=== PATIENT | female | born 1950 | race African-American/Black ===

== ENCOUNTER 2018-07-07 15:02 | Day surgery (SDC) | payer MEDICARE, MEDICAID ==
[2018-07-07] MEDS ORDERED: Sodium Chloride 0.9% 20 ML ONE (15:08)
[2018-07-07] MEDS ORDERED: Sodium Chloride 0.9% 1,000 ML IV SCH (15:15)
[2018-07-07 15:39] VITALS: BP 120/83
[2018-07-07] MEDS ORDERED: Pembrolizumab 200 MG in Sodium Chloride 0.9% 250 ML 250 ML IV SCH (16:00)
== END 2018-07-07 16:54 | disposition home or self-care (01) ==
LOC: ONC/OP 15:02
PROVIDERS: ATTEND Internal Medicine Hematology & Oncology
DX: Z51.11 Encounter for antineoplastic chemotherapy (principal); C34.90 Malignant neoplasm of unspecified part of unspecified bronchus or lung; C78.00 Secondary malignant neoplasm of unspecified lung; C78.7 Secondary malignant neoplasm of liver and intrahepatic bile duct; E11.9 Type 2 diabetes mellitus without complications; I10 Essential (primary) hypertension; E78.5 Hyperlipidemia, unspecified; Z86.73 Personal history of transient ischemic attack (TIA), and cerebral infarction without residual deficits; Z86.718 Personal history of other venous thrombosis and embolism; Z79.899 Other long term (current) drug therapy; Z88.8 Allergy status to other drugs, medicaments and biological substances
CPT/HCPCS: 80053; 82248; 83615; 84100; 84443; 84550; 96361; 96413; J1642; J7050; J9271

== ENCOUNTER 2018-07-19 18:23 | Inpatient (IN) | payer MEDICARE, MEDICAID ==
--- NOTE | 2018-07-19 20:13 | CT ---
CT BRAIN NONCONTRAST: HISTORY: A 68-year-old female, status post acute head trauma. The patient is on anticoagulation therapy. FINDINGS: There is no midline shift or any other mass effect. There is no evidence of acute intracranial hemor rhage, large cortical infarct, obstructive hydrocephalus, or extraaxial fluid collection. The calvar ium is intact. There is diffuse parenchymal volume loss. There are low attenuation areas in the whi te matter. These are nonspecific, but in a patient of this age, they are probably chronic ischemic w cara matter changes due to microvascular atherosclerosis. There are multiple ossifications of the an terior interhemispheric falx. IMPRESSION: 1) No acute intracranial findings. 2) Involutional changes and severe chronic ischemic white matter changes. nat [] POS: MANDY
--- NOTE | 2018-07-19 20:19 | CT ---
CT CERVICAL SPINE NONCONTRAST: DATE: 07/19/2018 TIME: 7:39 p.m. HISTORY: A 68-year-old female status post acute cervical trauma from fall. COMPARISON: None. FINDINGS: There are no jumped or perched facets. There is no evidence of acute fracture. The vertebral body h eights are maintained. There is no prevertebral soft tissue swelling. There are multiple noncalcified, biapical pulmonary nodules of varying sizes, incompletely imaged. T he ones at the right apex are larger than those of the left. The largest one at the right apex is up to 17 mm. The thyroid gland is diffusely enlarged, with heterogeneous attenuation. The left lobe i s the largest by a large nodule, but all the nodules are difficult to separate from each other. The right lobe has ill-defined regions of moderately low attenuation. There is coarse calcification at t he left thyroid mass. The left thyroid mass is approximately 4.5 x 4 x 6.5 cm. It displaces the trac hea to the right. There are multiple bridging osteophytes protruding anteriorly and to the preverteb ral space throughout all levels, from C2-C3 to C6-C7. Some of them are bulky and large. These encro ach upon the hypopharynx and could cause dysphagia. There is loss of lordosis. There is no acute fr acture or subluxation. IMPRESSION: 1. No evidence of acute fracture or acute traumatic subluxation. 2. Multiple biapical pulmonary nodules, incompletely imaged. Pulmonary metastatic disease is a poss ibility. 3. Diffuse thyromegaly. Possibilities include multinodular goiter and thyroid cancer. nat [] POS: MANDY
[2018-07-19 21:46] LABS: #Basophils 0.1 thou/uL (0.0-0.2); #Eosinphils 0.1 thou/uL (0.0-0.7); #Lymphocytes 3.1 thou/uL (1.20-3.40); #Monocytes 0.8 thou/uL (0.11-0.59); #Neutrophils 5.9 thou/uL (1.40-6.50); %Basophils 0.7 % (0.0-1.0); %Eosinophils 0.6 % (0.0-10.0); %Lymphocytes 31.1 % (21.0-51.0); %Monocytes 8.4 % (0.0-10.0); %Neutrophils 59.2 % (42.0-75.0); Mean Corpuscular HGB CONC 31.9 g/dL (32.0-36.0); Mean Corpuscular Hemoglobin 27.7 pg (27.0-31.0); Mean Corpuscular Volume 86.8 fL (78.0-98.0); Mean Platelet Volume 6.3 fL (7.4-10.4); Platelet Count 324 thou/uL (130-400); Red Blood Cell (RBC) Count 4.35 mill/uL (4.20-5.40); White Blood Cell (WBC) Count 9.9 thou/uL (4.8-10.8)
[2018-07-19 22:25] LABS: ALT (SGPT) 16 U/L (8-55); AST (SGOT) 75 U/L (5-34); Albumin 4.5 g/dL (3.4-4.8); Alkaline Phosphatase 116 U/L (40-150); Anion Gap 21 mmol/L (10-20); BUN (Urea Nitrogen) 14 mg/dL (9.8-20.1); Bilirubin, Total 0.6 mg/dL (0.2-1.2); CK (CPK) 41 U/L (29-168); Calc. Creatinine Clearance 0 mL/min (70-130); Carbon Dioxide 18 mmol/L (23-31); Chloride 101 mmol/L (98-107); Estimated GFR-MDRD 87; Globulin 4.6 g/dL (2.4-3.5); Glucose 90 mg/dL (80-115); Potassium 4.4 mmol/L (3.5-5.1); Protein, Total 9.1 g/dL (6.0-8.3); Sodium 136 mmol/L (136-145)
--- NOTE | 2018-07-19 22:57 | PDOC.FPRHP ---
- History of Present Illness Chief Complaint: fall History of Present Illness: This is a 68yo F with pmh of stage 4 Liver cancer with mets to lungs and pelvic lymph nodes (dx 12/2016, last chemo 07/2018) presenting with complaint of fall. Pt reports losing her balance earlier in the evening and hitting her head and lower back. Denies dizzyness/vertigo, denies LOC. Reports she simply lost her balance. Of note her daughter reports that in the weeks since her most recent chemo tx pt has had significantly decreased po intake. Today she reports to have only drank a half cup of water. Regarding Cancer: pt was diagnosed in december 2016 as listed above. Her oncologist Dr. Perdomo has been consulted and plans to see her in the AM. She reports that at the time of original Dx she was hospitalized in [place] for hypercalcemia and has had elevated levels since then though not as high as found in ED today (14, 13.6 when corrected for albumin) ED Course: 1 L NS, Tylenol, Oncology consulted from ED - Allergies/Adverse Reactions Allergies Allergy/AdvReac Type Severity Reaction Status Date / Time aspirin Allergy Unverified 07/07/18 15:12 lisinopril Allergy Verified 07/07/18 15:54 - Home Medications Medication Instructions Recorded Confirmed Type Amlodipine [Norvasc] 10 mg PO DAILY 07/20/18 07/20/18 History Apixaban [Eliquis] 5 mg PO BID 07/20/18 07/20/18 History Atorvastatin Calcium 10 mg PO DAILY 07/20/18 07/20/18 History Spironolactone 50 mg PO DAILY 07/20/18 07/20/18 History - History PMHx: Stage 4 liver cancer, CVA with residual L sided weakness, HLD, DM2, Hx of DVT PSHx: surgery on goiter, R ankle FHx:DM, CAD Social: denies tobacco/etoh/drugs - Review of Systems General: reports: fatigue. denies: fever/chills Eyes: denies: eye pain, vision changes ENT: denies: nasal congestion Respiratory: denies: cough, congestion, shortness of breath Cardiovascular: denies: chest pain, palpitation Gastrointestinal: denies: nausea, vomiting Skin: denies: rashes, lesions Musculoskeletal: reports: pain (lower back). denies: tenderness Neurological: denies: numbness, syncope, seizure Psychological: denies: anxiety, depression - Vital signs BP: [119/90] HR: [90] RR: [16] Tmax: [98] Pox: [95]% on [ra] Wt: [58] - Physical Exam Constitutional: NAD, awake, alert and oriented HEENT: PERRLA, EOMI, grossly normal vision, grossly normal hearing, MMM Neck: supple, trachea midline Chest: no-tender to palpation Heart: RRR, normal S1/S2 Lungs: CTAB, no respiratory distress Abdomen: soft, bowel sounds present Musculoskeletal: normal structure, normal tone Neurological: CN II-XII intact, normal sensation, other (Strength 5/5 diffusely except 4/5 on flexion/extention of LUE and LLE) Skin: good turgor, capillary refill <2 seconds Heme/Lymphatic: no unusual bruising or bleeding, no purpura Psychiatric: normal mood and affect, good judgment and insight, intact recent and remote memory FMR H&P: Results - Labs Result Diagrams: 07/19/18 21:35 07/19/18 21:35 Lab results: WBC 9.9 thou/uL (4.8-10.8) 07/19/18 21:35 Hgb 12.0 g/dL (12.0-16.0) 07/19/18 21:35 Hct 37.7 % (36.0-47.0) 07/19/18 21:35 MCV 86.8 fL (78.0-98.0) 07/19/18 21:35 Plt Count 324 thou/uL (130-400) 07/19/18 21:35 Neutrophils % 59.2 % (42.0-75.0) 07/19/18 21:35 Sodium 136 mmol/L (136-145) 07/19/18 21:35 Potassium 4.4 mmol/L (3.5-5.1) 07/19/18 21:35 Chloride 101 mmol/L (98-107) 07/19/18 21:35 Carbon Dioxide 18 mmol/L (23-31) L 07/19/18 21:35 BUN 14 mg/dL (9.8-20.1) 07/19/18 21:35 Creatinine 0.80 mg/dL (0.6-1.1) 07/19/18 21:35 Glucose 90 mg/dL (80-115) 07/19/18 21:35 Calcium 14.0 mg/dL (7.8-10.44) H* 07/19/18 21:35 Total Bilirubin 0.6 mg/dL (0.2-1.2) 07/19/18 21:35 AST 75 U/L (5-34) H 07/19/18 21:35 ALT 16 U/L (8-55) 07/19/18 21:35 Alkaline Phosphatase 116 U/L (40-150) 07/19/18 21:35 Creatine Kinase 41 U/L (29-168) 07/19/18 21:35 Serum Total Protein 9.1 g/dL (6.0-8.3) H 07/19/18 21:35 Albumin 4.5 g/dL (3.4-4.8) 07/19/18 21:35 FMR H&P: A/P - Problem List (1) Hypercalcemia Current Visit: Yes Status: Acute Code(s): E83.52 - HYPERCALCEMIA (2) Fall Current Visit: Yes Status: Acute Code(s): W19.XXXA - UNSPECIFIED FALL, INITIAL ENCOUNTER (3) Cancer, liver, primary Current Visit: Yes Status: Acute Code(s): C22.8 - MALIGNANT NEOPLASM OF LIVER, PRIMARY, UNSPECIFIED TO TYPE (4) HTN (hypertension) Current Visit: Yes Status: Acute Code(s): I10 - ESSENTIAL (PRIMARY) HYPERTENSION (5) HLD (hyperlipidemia) Current Visit: Yes Status: Acute Code(s): E78.5 - HYPERLIPIDEMIA, UNSPECIFIED (6) History of DVT (deep vein thrombosis) Current Visit: Yes Status: Acute Code(s): Z86.718 - PERSONAL HISTORY OF OTHER VENOUS THROMBOSIS AND EMBOLISM - Plan Moderate Hypercalcemia 2/2 hypovolemia vs. malignancy vs. primary hyperparathyroidism A- CT head/neck negative for acute process but did show diffuse thyromegaly. On routine work up, pt found to have a calcium of 14, corrected to 13.6. Pt has had a chronically elevated calcium but has never been this high at this facility. 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 - PTH to rule out primary hyperparathyroidism. - Trend with AM labs w/ Ca and vitamin D - Oncology consulted from ER, f/u on much appreciated recommendations Fall likely 2/2 hypovolemia A- CT c spine and head show no acute/malicious processes, pt complains of increased lumbar pain but shows no red flag symptoms P- Continue with IVF - Lumbar XR - orthostatics - fall precautions - ambulate with assist Stage IV liver CA -Per oncology. Hx of DVT -home eliquis Hx of CVA -pt lists ASA allergy HLD -home atorvastatin HTN -home spironolactone and amlodipine DM2 -pt lists in pmh but not on any med. BG low on presentation -ACHS accuchecks, mild ssi DNAR code PPx: Eliquis for VTE disposition: Admit to telemetry observation FMR H&P: Upper Level - Pertinent history 68 yo AAF with history of stage IV liver CA on chemotherapy since October presenting with weakness and a witnessed fall earlier today at home. Pt was using walker when she felt weak and fell backwards. She hit her lower back and head but denies LOC. Daughter states unsteady gait recently. Pt endorses poor PO intake since starting therapy but otherwise denies fevers/chills, SKINNER, CP, palpitations, SOB, abdominal pain, NVD, constipation. Pt's last chemotherapy was 07/07/2018. Oncologist is Dr. Perdomo. - Pertinent findings VSS Gen: pleasant in NAD CV: RRR Resp: unlabored, CTAB Abd: BS+, NTTP - Plan Date/Time: 07/19/18 4118 I, Toi Sawyer MD PGY3, have evaluated this patient and agree with findings/ plan as outlined by planner internship resident. Pertinent changes/additions are listed here. 1. Moderate Hypercalcemia likely 2/2 malignancy -Pt presents with witnessed ground level fall due to worsening weakness. CT head /neck negative for acute process but did show diffuse thyromegaly. On routine work up, pt found to have a calcium of 14, corrected to 13.6. -Pt has had a chronically elevated calcium but has never been this high. -Will admit to telemetry for fluid resuscitation with normal saline. Consider Calcitonin administration as well to increase urinary excretion. Pt may also benefit from bisphosphonate half-way. -Although hypercalcemia likely related to known malignancy, will obtain PTH to rule out primary hyperparathyroidism. -Trend with AM labs. -Oncology consulted from ER, recommendations greatly appreciated. 2. Stage IV liver CA -Per oncology. -Resume home medications. DNAR code PPx: Eliquis for VTE, no GI indicated. disposition: Admit to telemetry observation for anticipated length of stay less than two midnights, pending clinical course. Addendum - Attending - Attending Attestation Date/Time: 07/20/18 0801 I personally evaluated the patient and discussed the management with Dr. Smith and Silverio. I agree with and repeated the History, Examination, Assessment and Plan documented above with any addition or exceptions noted below. Neuro exam intact. C/o back pain post fall. Will order imaging and follow.
[2018-07-20] MEDS ORDERED: Acetaminophen 500 MG TAB ONE (00:32)
--- NOTE | 2018-07-20 06:48 | PDOC.FM ---
- Subjective Subjective: No events overnight. Patient resting, but in mild distress due to back/right sided pain. Patient states she fell on her back yesterday and this could be the cause. Patient otherwise denies SOB, chest pain, abdominal pain, NVD. - Objective MAR Reviewed: Yes Result Diagrams: 07/19/18 21:35 07/20/18 08:14 Phys Exam - Physical Examination Constitutional: NAD HEENT: PERRLA, moist MMs, sclera anicteric Neck: supple Respiratory: clear to auscultation bilateral Cardiovascular: RRR Gastrointestinal: soft, non-tender, no distention, positive bowel sounds Musculoskeletal: no edema TTP on right flank area; no bruising noted Neurological: moves all 4 limbs Psychiatric: normal affect, A&O x 3 Skin: no rash Dx/Plan (1) Cancer, liver, primary Code(s): C22.8 - MALIGNANT NEOPLASM OF LIVER, PRIMARY, UNSPECIFIED TO TYPE Status: Acute (2) Fall Code(s): W19.XXXA - UNSPECIFIED FALL, INITIAL ENCOUNTER Status: Acute (3) HLD (hyperlipidemia) Code(s): E78.5 - HYPERLIPIDEMIA, UNSPECIFIED Status: Acute (4) HTN (hypertension) Code(s): I10 - ESSENTIAL (PRIMARY) HYPERTENSION Status: Acute (5) History of DVT (deep vein thrombosis) Code(s): Z86.718 - PERSONAL HISTORY OF OTHER VENOUS THROMBOSIS AND EMBOLISM Status: Acute (6) Hypercalcemia Code(s): E83.52 - HYPERCALCEMIA Status: Acute - Plan Plan: Moderate Hypercalcemia 2/2 hypovolemia vs. malignancy vs. primary hyperparathyroidism - CT head/neck negative for acute process but did show diffuse thyromegaly. On routine work up, pt found to have a calcium of 14, corrected to 13.6. Pt has had a chronically elevated calcium but has never been this high at this facility. EKG normal with normal qtc - NS @ 150ml/hr for correction of Ca; will consider bisphosphonate therapy for mcc - PTH to rule out primary hyperparathyroidism pending - Trend with AM labs w/ Ca and vitamin D - pending - Oncology consulted from ER, f/u on much appreciated recommendations; palliative care consulted Fall likely 2/2 hypovolemia - CT c spine and head show no acute/malicious processes, pt complains of increased lumbar pain but shows no red flag symptoms - Continue with IVF - Lumbar XR pending - orthostatics pending - fall precautions; ambulate with assist Stage IV liver CA - Per oncology, appreciate recs - Palliative care consulted - Alex for pain Hx of DVT - home eliquis Hx of CVA - aware, pt lists ASA allergy HLD - home atorvastatin HTN - home spironolactone and amlodipine DM2 - pt lists in pmh but not on any med. BG low on presentation - ACHS accuchecks, mild SSI DNAR code PPx: Eliquis for VTE Dispo: Admit to telemetry obs Addendum - Attending - Attending Attestation Date/Time: 07/20/18 8603 I personally evaluated the patient and discussed the management with Dr. Jaramillo I agree with the History, Examination, Assessment and Plan documented above with any addition or exceptions noted below.Malignancy associated hypercalcemia responding to fluids and Zoledronic acid appreciate oncology recommendations. Patient complain right hip pain s/p trauma continue in observation.
[2018-07-20] MEDS ORDERED: Lactated Ringer's 1,000 ML IV SCH (07:00)
[2018-07-20] MEDS ORDERED: HYDROcodone/Acetaminophen 7.5/325 mg Tablet PO PRN (08:10)
[2018-07-20] MEDS ORDERED: Zoledronic Acid 4 MG in Sodium Chloride 0.9% 100 ML IVPB SCH (08:30)
[2018-07-20 08:53] LABS: Anion Gap 13 mmol/L (10-20); BUN (Urea Nitrogen) 13 mg/dL (9.8-20.1); Calc. Creatinine Clearance 0 mL/min (70-130); Carbon Dioxide 22 mmol/L (23-31); Chloride 105 mmol/L (98-107); Estimated GFR-MDRD Greater than 90; Glucose 91 mg/dL (80-115); Potassium 4.2 mmol/L (3.5-5.1); Sodium 136 mmol/L (136-145)
[2018-07-20 09:02] LABS: Calcium 12.9 mg/dL (7.8-10.44)
[2018-07-20] MEDS: Sodium Chloride 0.9% 1,000 ML IV SCH ×3 (09:14→22:31)
--- NOTE | 2018-07-20 09:35 | RAD ---
LUMBAR SPINE THREE VIEW SERIES: Indication: Back pain, fall. FINDINGS: There is a grade I spondylolisthesis at L4-5. No compression fracture. Moderate multilevel degenerati ve change of the lumbar spine is present. Pelvic osseous structures are not reliably visualized and a re incompletely seen on the base of this exam. IMPRESSION: No acute compression fracture of the lumbar spine. Grade I spondylolisthesis at L4-5. POS: TPC
[2018-07-20 10:16] LABS: Magnesium 1.7 mg/dL (1.6-2.6); Phosphorus 2.2 mg/dL (2.3-4.7)
[2018-07-20] MEDS ORDERED: Dextrose 5% in Water 1,000 ML IV PRN (14:22)
[2018-07-20] MEDS ORDERED: Acetaminophen 325 MG TAB PO PRN (14:22)
[2018-07-20] MEDS ORDERED: Dextrose 50% Abboject 50 ML SYRINGE SLOW IVP PRN (14:22)
[2018-07-20] MEDS ORDERED: HumaLOG 300 UNITS/3 ML VIAL SC PRN (14:22)
[2018-07-20] MEDS ORDERED: Amlodipine 10 MG TAB PO SCH (15:00)
[2018-07-20] MEDS ORDERED: Apixaban 5 MG TAB PO SCH (15:00)
[2018-07-20] MEDS ORDERED: Spironolactone 25 MG TAB PO SCH (15:00)
[2018-07-20] MEDS ORDERED: Atorvastatin Calcium 10 MG TAB PO SCH (15:00)
[2018-07-20] MEDS: Apixaban 5 MG TAB PO SCH (22:24)
--- NOTE | 2018-07-21 04:00 | CON ---
DATE OF CONSULTATION: REASON FOR CONSULT: Hypercalcemia. HISTORY OF PRESENT ILLNESS: Ms. Ladd is a 68-year-old female with metastatic carcinoma of unknown primary, likely lung origin, who underwent 6 cycles of chemotherapy consisting of carboplatin and Taxol. She is currently on immunotherapy with Keytruda. She presented to the emergency room this morning after a fall. Her calcium was noted to be elevated at 14. She was mildly dehydrated and started on IV fluids for hypercalcemia. She had a brain and cervical spine CT and x-ray, all of which showed no acute findings. She has a history of malignant hypercalcemia. Her calcium on July 07 in the clinic was 11.8. She complains of back pain at this time. She has a history of UTI and was started on Cipro in July for symptoms. PAST MEDICAL HISTORY: 1. 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 2. Diabetes mellitus 2. 3. Hypertension. 4. Hyperlipidemia. 5. History of CVA. 6. History of right lower extremity DVT. PAST SURGICAL HISTORY: 1. Ankle surgery. 2. Thyroid surgery, goiter. ALLERGIES: ASPIRIN AND LISINOPRIL. HOME MEDICATIONS: 1. Amlodipine 2.5 mg b.i.d. 2. Atorvastatin 10 mg daily. 3. Eliquis 5 mg b.i.d. 4. Spironolactone 25 mg daily. FAMILY HISTORY: No history of cancer. SOCIAL HISTORY: Single, lives with her daughter. No alcohol, tobacco, or illicit drug use. REVIEW OF SYSTEMS: CONSTITUTIONAL: No fever, chills, or night sweats. Positive for poor appetite and weakness. EYES: No blurred or double vision. ENT: No pain, hoarseness, sore throat, or dysphagia. CV: No chest pain, palpitations, or syncope. RESPIRATORY: No shortness of breath, dyspnea on exertion, or orthopnea. GI: No nausea, vomiting, diarrhea, constipation, or abdominal pain. : No dysuria or hematuria. MUSCULOSKELETAL: Positive for back pain. SKIN: No rash or pruritus. HEMATOLOGICAL: No bleeding, bruising, or clotting. NEUROLOGICAL: Positive for weakness or syncope. No headaches or seizure activity. PSYCH: No anxiety or depression. PHYSICAL EXAMINATION: VITAL SIGNS: Per ER record, the patient is afebrile. GENERAL: A frail female, in no acute distress. HEENT: Normocephalic, atraumatic. Pupils equal and reactive to light. NECK: Supple. CV: Regular rate and rhythm. LUNGS: Clear. ABDOMEN: Soft, nontender. Bowel sounds are positive. EXTREMITIES: No clubbing, cyanosis, or edema. SKIN: No rash. HEMATOLOGICAL: No petechiae or purpura. NEUROLOGICAL: Nonfocal. PSYCH: The patient is alert, oriented, and appropriate. LABORATORY DATA: Current WBCs 9.9, hemoglobin 12, hematocrit 37.7, platelet count 324,000, 59% neutrophils, 31% lymphocytes. Sodium 136, potassium 4.2, chloride 105, CO2 is 22, BUN is 13, creatinine 0.75, calcium is 12.9, phosphorus 2.2, magnesium 1.7. Total bilirubin is 0.6, AST 75, ALT 16, alkaline phosphatase 116. Creatine kinase 41. Troponin is less than 0.010. Serum total protein 9.1, albumin 4.5, globulin 4.6. PTH is 4.4. RADIOLOGY: Per HPI. ASSESSMENT: 1. Metastatic hepatoid carcinoma. 2. Malignant hypercalcemia. 3. Dehydration, likely syncopal episode. DISCUSSION: The patient has been started on IV fluids with mild improvement in her calcium. She will receive a dose of zoledronic acid. We will recheck her calcium in the morning. Her next treatment is due on July 28. We will follow up with her in the outpatient setting. Thank you for the consult. Job ID: [id number]
--- NOTE | 2018-07-21 06:17 | PDOC.FM ---
- Subjective Subjective: No events overnight. Patient does complain of abdominal pain this morning. States no BM in over 3 days. She states her right sided back pain has improved. No other issues or complaints. She states overall she feels better. Per daughter , she states her mother is at her baseline mentation. She states that the patient has been having some dementia and has good and bad days. - Objective MAR Reviewed: Yes Vital Signs & Weight: Vital Signs (12 hours) Temp Pulse Resp BP BP BP Pulse Ox 07/20/18 22:08 104 H 130/74 131/72 07/20/18 21:10 100.1 F H 99 21 H 131/70 97 Weight Weight 61.371 kg Result Diagrams: 07/19/18 21:35 07/21/18 05:21 Phys Exam - Physical Examination Constitutional: NAD HEENT: PERRLA, moist MMs, sclera anicteric Neck: supple Respiratory: clear to auscultation bilateral Cardiovascular: RRR Gastrointestinal: soft, non-tender, no distention, positive bowel sounds Musculoskeletal: no edema Neurological: non-focal Psychiatric: normal affect Dx/Plan (1) Cancer, liver, primary Code(s): C22.8 - MALIGNANT NEOPLASM OF LIVER, PRIMARY, UNSPECIFIED TO TYPE Status: Acute (2) Fall Code(s): W19.XXXA - UNSPECIFIED FALL, INITIAL ENCOUNTER Status: Acute (3) HLD (hyperlipidemia) Code(s): E78.5 - HYPERLIPIDEMIA, UNSPECIFIED Status: Acute (4) HTN (hypertension) Code(s): I10 - ESSENTIAL (PRIMARY) HYPERTENSION Status: Acute (5) History of DVT (deep vein thrombosis) Code(s): Z86.718 - PERSONAL HISTORY OF OTHER VENOUS THROMBOSIS AND EMBOLISM Status: Acute (6) Hypercalcemia Code(s): E83.52 - HYPERCALCEMIA Status: Acute (7) Constipation Code(s): K59.00 - CONSTIPATION, UNSPECIFIED Status: Acute - Plan Plan: Moderate Hypercalcemia 2/2 hypovolemia vs. malignancy - CT head/neck negative for acute process but did show diffuse thyromegaly. On routine work up, pt found to have a calcium of 14, corrected to 13.6. Pt has had a chronically elevated calcium but has never been this high at this facility. EKG normal with normal qtc - NS @ 150ml/hr for correction of Ca; will consider bisphosphonate therapy for nursing home - PTH low, ruling out primary hyperparathyroidism; Vit D low - Trend with AM labs w/ Ca. Ca 13.6 corrected on arrival -> 11.6 - Oncology consulted from ER, f/u on much appreciated recommendations; palliative care consulted Fall likely 2/2 hypovolemia - CT c spine and head show no acute/malicious processes, pt complains of increased lumbar pain but shows no red flag symptoms - Continue with IVF - Lumbar XR no acute fracture - fall precautions; ambulate with assist Constipation - non tender, non distended on exam; reported no BM in over 3 days - Will give miralax and senokot - can consider imaging if no improvement in abdominal pain Stage IV liver CA - Per oncology, appreciate recs. Pt has appointment for next treatment on Jul 28. - Palliative care consulted - Alex for pain Hx of DVT - home eliquis Hx of CVA - aware, pt lists ASA allergy HLD - home atorvastatin HTN - home spironolactone and amlodipine DM2 - pt lists in pmh but not on any med. BG low on presentation - ACHS accuchecks, mild SSI DNAR code PPx: Eliquis for VTE Dispo: possible discharge later today Addendum - Attending - Attending Attestation Date/Time: 07/21/182017 I personally evaluated the patient and discussed the management with Dr. Jaramillo I agree with the History, Examination, Assessment and Plan documented above with any addition or exceptions noted below.
[2018-07-21] MEDS: Sodium Chloride 0.9% 1,000 ML IV SCH ×4 (06:18→20:30)
[2018-07-21 06:36] LABS: Anion Gap 13 mmol/L (10-20); BUN (Urea Nitrogen) 6 mg/dL (9.8-20.1); Calc. Creatinine Clearance 79 mL/min (70-130); Calcium 11.6 mg/dL (7.8-10.44); Carbon Dioxide 18 mmol/L (23-31); Chloride 108 mmol/L (98-107); Estimated GFR-MDRD Greater than 90; Glucose 89 mg/dL (80-115); Potassium 4.4 mmol/L (3.5-5.1); Sodium 135 mmol/L (136-145)
[2018-07-21] MEDS ORDERED: Benzonatate 100 MG CAP PO PRN (08:27)
[2018-07-21] MEDS ORDERED: Amlodipine 10 MG TAB PO SCH (09:00)
[2018-07-21] MEDS ORDERED: Senokot 8.6 MG TAB PO SCH (09:00)
[2018-07-21] MEDS ORDERED: Prevnar 13-Val Conj/PF 0.5 ML SYRINGE IM ONE (09:00)
[2018-07-21] MEDS: Atorvastatin Calcium 10 MG TAB PO SCH (09:35)
[2018-07-21] MEDS: Apixaban 5 MG TAB PO SCH ×2 (09:35→20:54)
[2018-07-21] MEDS: Spironolactone 25 MG TAB PO SCH (09:35)
[2018-07-21] MEDS: Polyethylene Glycol 3350 17 GM Packet PO SCH (09:36)
[2018-07-21] MEDS ORDERED: Lactated Ringer's 500 ML IV SCH (12:15)
[2018-07-22] MEDS: Sodium Chloride 0.9% 1,000 ML IV SCH ×3 (04:30→18:34)
--- NOTE | 2018-07-22 06:41 | PDOC.FM ---
- Subjective Subjective: No overnight events. Patient resting comfortably in bed. States she feels better this morning than yesterday. Patient seen by PT yesterday. - Objective MAR Reviewed: Yes Vital Signs & Weight: Vital Signs (12 hours) Temp Pulse Resp BP Pulse Ox 07/21/18 19:35 98.8 F 97 16 126/62 94 L Weight Weight 61.371 kg I&O: 07/20/18 07/21/18 07/22/18 06:59 06:59 06:59 Intake Total 1412 1434 Balance 1412 1434 Result Diagrams: 07/19/18 21:35 07/22/18 07:05 Phys Exam - Physical Examination Constitutional: NAD HEENT: PERRLA, moist MMs, sclera anicteric Neck: supple, full ROM Respiratory: clear to auscultation bilateral Cardiovascular: RRR Gastrointestinal: soft, non-tender, no distention, positive bowel sounds Musculoskeletal: no edema Neurological: non-focal Psychiatric: normal affect Dx/Plan (1) Cancer, liver, primary Code(s): C22.8 - MALIGNANT NEOPLASM OF LIVER, PRIMARY, UNSPECIFIED TO TYPE Status: Acute (2) Fall Code(s): W19.XXXA - UNSPECIFIED FALL, INITIAL ENCOUNTER Status: Acute (3) HLD (hyperlipidemia) Code(s): E78.5 - HYPERLIPIDEMIA, UNSPECIFIED Status: Acute (4) HTN (hypertension) Code(s): I10 - ESSENTIAL (PRIMARY) HYPERTENSION Status: Acute (5) History of DVT (deep vein thrombosis) Code(s): Z86.718 - PERSONAL HISTORY OF OTHER VENOUS THROMBOSIS AND EMBOLISM Status: Acute (6) Hypercalcemia Code(s): E83.52 - HYPERCALCEMIA Status: Acute (7) Constipation Code(s): K59.00 - CONSTIPATION, UNSPECIFIED Status: Acute - Plan Plan: Moderate Hypercalcemia 2/2 hypovolemia vs. malignancy - CT head/neck negative for acute process but did show diffuse thyromegaly. On routine work up, pt found to have a calcium of 14, corrected to 13.6. Pt has had a chronically elevated calcium but has never been this high at this facility. EKG normal with normal qtc - NS @ 150ml/hr for correction of Ca; will consider bisphosphonate therapy for fci - PTH low, ruling out primary hyperparathyroidism; Vit D low - Trend with AM labs w/ Ca. Ca 13.6 corrected on arrival -> 11.6 - Oncology consulted from ER, f/u on much appreciated recommendations; palliative care consulted Hypophosphatemia and hypomagnesemia - Will replete as necessary Fall likely 2/2 hypovolemia - CT c spine and head show no acute/malicious processes, pt complains of increased lumbar pain but shows no red flag symptoms - Continue with IVF - Lumbar XR no acute fracture - fall precautions; ambulate with assist - PT recommends rehab vs SNU - rehab screen in place Constipation - non tender, non distended on exam; reported no BM in over 3 days - Will give miralax and senokot; patient endorses BM yesterday; no imaging necessary at this time; resolution of abdominal pain Stage IV liver CA - Per oncology, appreciate recs. Pt has appointment for next treatment on Jul 28. - Palliative care consulted - patient no longer complaining of pain - norco d/c'd Hx of DVT - home eliquis Hx of CVA - aware, pt lists ASA allergy HLD - home atorvastatin HTN - home spironolactone and amlodipine DM2 - pt lists in pmh but not on any med. BG low on presentation - ACHS accuchecks, mild SSI DNAR code PPx: Eliquis for VTE Dispo: possible discharge later today Addendum - Attending - Attending Attestation Date/Time: 07/22/18 8862 I personally evaluated the patient and discussed the management with Dr. Jaramillo I agree with the History, Examination, Assessment and Plan documented above with any addition or exceptions noted below.
[2018-07-22 07:57] LABS: Anion Gap 13 mmol/L (10-20); BUN (Urea Nitrogen) 4 mg/dL (9.8-20.1); Calc. Creatinine Clearance 87 mL/min (70-130); Calcium 10.2 mg/dL (7.8-10.44); Carbon Dioxide 15 mmol/L (23-31); Chloride 109 mmol/L (98-107); Estimated GFR-MDRD Greater than 90; Glucose 87 mg/dL (80-115); Magnesium 1.2 mg/dL (1.6-2.6); Phosphorus 1.3 mg/dL (2.3-4.7); Potassium 3.9 mmol/L (3.5-5.1); Sodium 133 mmol/L (136-145)
[2018-07-22] MEDS ORDERED: Magnesium Citrate 300 ML BOT PO SCH (09:15)
[2018-07-22] MEDS: Polyethylene Glycol 3350 17 GM Packet PO SCH (09:31)
[2018-07-22] MEDS: Atorvastatin Calcium 10 MG TAB PO SCH (09:31)
[2018-07-22] MEDS: Amlodipine 5 MG TAB PO SCH (09:32)
[2018-07-22] MEDS: Spironolactone 25 MG TAB PO SCH (09:32)
[2018-07-22] MEDS: Apixaban 5 MG TAB PO SCH ×2 (09:32→21:01)
--- NOTE | 2018-07-22 21:11 | RAD ---
RADIOGRAPH CHEST 1 VIEW: Date: 07/22/18 Time: 8:07 p.m. HISTORY: 68-year-old female with dyspnea. COMPARISON: None available. FINDINGS: There is a left sided implantable vascular access port which ascends the left chest, then loops over the left supraclavicular region, then descends medially into the upper mediastinum, crosses the midli ne of the upper mediastinum, with distal tip directed superiorly in the contralateral right upper med iastinum. The right hemidiaphragm is elevated. There is a right hilar 3 x 3.5 cm dense mass. There is diffuse pulmonary venous engorgement. There are also multiple bilateral pulmonary nodules. There is confluent small air space density at the lateral aspect of the right lateral mid- lower lung zone. Mu ltiple sternotomy wires. Widening of the mediastinum bilaterally, especially on the left, with displa cement of the trachea to the right. No pneumothorax. IMPRESSION: 1. Right hilar or perihilar mass which could represent a primary lung cancer. 2. Multiple tiny bilateral pulmonary nodules which could represent pulmonary metastatic disease. 3. Elevated right hemidiaphragm. 4. Small air space density at the right lateral lower lung zone. 5. Implantable vascular access port catheter on the left crosses the mediastinum, with distal ti p overlying the expected location of the contralateral right brachiocephalic vein, directed superiorl y. 6. Elevated right hemidiaphragm. 7. Chest CT would be useful (preferably with IV contrast unless contraindicated). VANESA [] POS: MANDY
[2018-07-22] MEDS ORDERED: Furosemide 20 MG/2 ML VIAL SLOW IVP SCH (22:30)
--- NOTE | 2018-07-22 22:32 | PDOC.EVN ---
Event Note - Event Note Event Note: Nurse paged noting patient had labored breathing. Evaluated patient at bedside. Patient with some increased work of breathing. Denied SOB or difficulty breathing. Satting 95% on RA. Heart: RRR Lungs: no wheezing or rhonchi. crackles in left lung base. good air movement. Stopped IVF, ordered CXR. Will continue to monitor VS and consider lasix if needed.
--- NOTE | 2018-07-23 06:47 | PDOC.FM ---
- Subjective Subjective: Overnight, patient was tachypneic w/ RR 28-32. Patient was satting well and HR wnl. CXR ordered, no fluid overload. IVF stopped. Patient reported no SOB or difficulty breathing at that time. This morning, patient states she feels well. Denies SOB or difficulty breathing. States she feels well. Due to patient stating rehab in the past was "too much" for her, family decided on SNF. Pt denies chest pain, palpitations, abdominal pain, NVD. - Objective MAR Reviewed: Yes Vital Signs & Weight: Vital Signs (12 hours) Temp Pulse Resp BP BP Pulse Ox 07/23/18 04:53 98.7 F 60 28 H 120/68 92 L 07/22/18 23:29 98.0 F 108 H 30 H 126/74 93 L 07/22/18 20:56 99.1 F 109 H 32 H 127/76 96 Weight Weight 61.371 kg I&O: 07/21/18 07/22/18 07/23/18 06:59 06:59 06:59 Intake Total 1412 3234 3524 Balance 1412 3234 3524 Result Diagrams: 07/19/18 21:35 07/23/18 10:56 Phys Exam - Physical Examination Constitutional: NAD HEENT: PERRLA, moist MMs, sclera anicteric Neck: supple, full ROM Respiratory: clear to auscultation bilateral Cardiovascular: RRR Gastrointestinal: soft, non-tender, no distention, positive bowel sounds Musculoskeletal: no edema Neurological: non-focal, moves all 4 limbs Dx/Plan (1) Cancer, liver, primary Code(s): C22.8 - MALIGNANT NEOPLASM OF LIVER, PRIMARY, UNSPECIFIED TO TYPE Status: Acute (2) Fall Code(s): W19.XXXA - UNSPECIFIED FALL, INITIAL ENCOUNTER Status: Acute (3) HLD (hyperlipidemia) Code(s): E78.5 - HYPERLIPIDEMIA, UNSPECIFIED Status: Acute (4) HTN (hypertension) Code(s): I10 - ESSENTIAL (PRIMARY) HYPERTENSION Status: Acute (5) History of DVT (deep vein thrombosis) Code(s): Z86.718 - PERSONAL HISTORY OF OTHER VENOUS THROMBOSIS AND EMBOLISM Status: Acute (6) Hypercalcemia Code(s): E83.52 - HYPERCALCEMIA Status: Acute (7) Constipation Code(s): K59.00 - CONSTIPATION, UNSPECIFIED Status: Acute - Plan Plan: Moderate Hypercalcemia 2/2 hypovolemia vs. malignancy - CT head/neck negative for acute process but did show diffuse thyromegaly. On routine work up, pt found to have a calcium of 14, corrected to 13.6. Pt has had a chronically elevated calcium but has never been this high at this facility. EKG normal with normal qtc - calcium corrected, IVF d/c'd - PTH low, ruling out primary hyperparathyroidism; Vit D low - Trend with AM labs w/ Ca. Ca 13.6 corrected on arrival -> 11.6 -> 10 - Oncology consulted from ER, f/u on much appreciated recommendations; palliative care on board Hypophosphatemia and hypomagnesemia - Will replete as necessary Fall likely 2/2 hypovolemia - CT c spine and head show no acute/malicious processes, pt complains of increased lumbar pain but shows no red flag symptoms - Continue with IVF - Lumbar XR no acute fracture - fall precautions; ambulate with assist - PT recommends rehab vs SNU - rehab screen in place Constipation - non tender, non distended on exam; reported no BM in over 3 days - Will give miralax and senokot; patient endorses BM yesterday; no imaging necessary at this time; resolution of abdominal pain Stage IV liver CA - Per oncology, appreciate recs. Pt has appointment for next treatment on Jul 28. - Palliative care consulted - patient no longer complaining of pain - norco d/c'd - CXR 07/22: lung nodules present; family aware of nodules from prior CXR Hx of DVT - home eliquis Hx of CVA - aware, pt lists ASA allergy HLD - home atorvastatin HTN - home spironolactone and amlodipine DM2 - pt lists in pmh but not on any med. BG low on presentation - ACHS accuchecks, mild SSI DNAR code PPx: Eliquis for VTE Dispo: awaiting SNF placement Addendum - Attending - Attending Attestation Date/Time: 07/23/18 7913 I personally evaluated the patient and discussed the management with Dr. Jaramillo I agree with the History, Examination, Assessment and Plan documented above with any addition or exceptions noted below. Note episode dyspnea last pm stable at present d/c to home soon f/u with oncology.
[2018-07-23] MEDS: Polyethylene Glycol 3350 17 GM Packet PO SCH (08:32)
[2018-07-23] MEDS: Apixaban 5 MG TAB PO SCH ×2 (08:34→20:19)
[2018-07-23] MEDS: Amlodipine 5 MG TAB PO SCH (08:34)
[2018-07-23] MEDS: Spironolactone 25 MG TAB PO SCH (08:34)
[2018-07-23] MEDS: Atorvastatin Calcium 10 MG TAB PO SCH (08:34)
[2018-07-23 11:42] LABS: Anion Gap 14 mmol/L (10-20); BUN (Urea Nitrogen) Less than 4 mg/dL (9.8-20.1); Calc. Creatinine Clearance 73 mL/min (70-130); Calcium 10.5 mg/dL (7.8-10.44); Carbon Dioxide 18 mmol/L (23-31); Chloride 106 mmol/L (98-107); Estimated GFR-MDRD Greater than 90; Glucose 135 mg/dL (80-115); Magnesium 1.6 mg/dL (1.6-2.6); Potassium 3.6 mmol/L (3.5-5.1); Sodium 134 mmol/L (136-145)
[2018-07-23 11:45] LABS: Phosphorus 1.1 mg/dL (2.3-4.7)
[2018-07-23] MEDS ORDERED: Sodium Chloride 0.9% 10 ML ONE (20:05)
[2018-07-24 05:18] LABS: Anion Gap 14 mmol/L (10-20); BUN (Urea Nitrogen) 4 mg/dL (9.8-20.1); Calc. Creatinine Clearance 81 mL/min (70-130); Calcium 10.5 mg/dL (7.8-10.44); Carbon Dioxide 18 mmol/L (23-31); Chloride 106 mmol/L (98-107); Estimated GFR-MDRD Greater than 90; Glucose 92 mg/dL (80-115); Magnesium 1.5 mg/dL (1.6-2.6); Phosphorus 1.7 mg/dL (2.3-4.7); Potassium 4.1 mmol/L (3.5-5.1); Sodium 134 mmol/L (136-145)
--- NOTE | 2018-07-24 05:52 | PDOC.FM ---
- Subjective Subjective: Patient has no complaints this AM. Is hesistant about going home with daughter because she is unsure whether or not her daughter can handle all of her care. Denies any chest pain, abdominal pain, or SOB. - Objective MAR Reviewed: Yes Vital Signs & Weight: Vital Signs (12 hours) Temp Pulse Resp BP Pulse Ox 07/24/18 01:56 98.1 F 92 22 H 125/74 98 07/23/18 18:24 98.4 F 106 H 16 118/68 95 Weight Weight 61.371 kg I&O: 07/22/18 07/23/18 07/24/18 06:59 06:59 06:59 Intake Total 3234 3524 520 Balance 3234 3524 520 Result Diagrams: 07/19/18 21:35 07/24/18 04:36 Phys Exam - Physical Examination Constitutional: NAD HEENT: moist MMs, sclera anicteric Neck: supple, full ROM Respiratory: no wheezing, no rales, no rhonchi, clear to auscultation bilateral Cardiovascular: RRR, no significant murmur Gastrointestinal: positive bowel sounds Musculoskeletal: pulses present, edema present (trace edema present in B/L feet & ankles) Neurological: non-focal, moves all 4 limbs Psychiatric: normal affect, A&O x 3 Skin: no rash, normal turgor Dx/Plan (1) Hypercalcemia Code(s): E83.52 - HYPERCALCEMIA Status: Acute (2) Cancer, liver, primary Code(s): C22.8 - MALIGNANT NEOPLASM OF LIVER, PRIMARY, UNSPECIFIED TO TYPE Status: Acute (3) Constipation Code(s): K59.00 - CONSTIPATION, UNSPECIFIED Status: Acute (4) Fall Code(s): W19.XXXA - UNSPECIFIED FALL, INITIAL ENCOUNTER Status: Acute (5) HLD (hyperlipidemia) Code(s): E78.5 - HYPERLIPIDEMIA, UNSPECIFIED Status: Acute (6) HTN (hypertension) Code(s): I10 - ESSENTIAL (PRIMARY) HYPERTENSION Status: Acute (7) History of DVT (deep vein thrombosis) Code(s): Z86.718 - PERSONAL HISTORY OF OTHER VENOUS THROMBOSIS AND EMBOLISM Status: Acute - Plan Plan: Moderate Hypercalcemia 2/2 hypovolemia vs. malignancy - Resolved - CT head/neck negative for acute process but did show diffuse thyromegaly. On routine work up, pt found to have a calcium of 14, corrected to 13.6. Pt has had a chronically elevated calcium but has never been this high at this facility. EKG WNLs with normal qtc - Trend with AM labs w/ Ca. Ca 13.6 corrected on arrival -> 11.6 -> 10 - PTH low, ruling out primary hyperparathyroidism; Vit D low - Oncology consulted from ER, appreciated recs - palliative care also on board Hypophosphatemia and hypomagnesemia - Aware, will continue to monitor & replace PRN Fall likely 2/2 hypovolemia - CT c spine and head show no acute/malicious processes, pt complains of increased lumbar pain but shows no red flag symptoms - Lumbar XR also negative for any acute fractures - fall precautions ordered; ambulate with assist - PT recommends rehab vs SNU. Pt denied by SNU 2/ being on chemo. However, daughter opted for home w/ HH PT 4x/week. HH in place and patient ready for d/c home with daughter today. Stage IV liver CA - Oncology on board, appreciate recs. Pt has appointment for next treatment on Jul 28. - Palliative care on board as well - patient no longer complaining of pain - norco d/c'd - CXR 07/22: lung nodules present; family aware of nodules from prior CXR Hx of DVT - home eliquis Hx of CVA - aware, pt lists ASA allergy HLD - home atorvastatin HTN - home spironolactone and amlodipine DM2 - pt lists in pmh but not on any med. BG low on presentation - ACHS accuchecks, mild SSI Constipation - Resolved. - Will continue miralax and senokot while patient is on [place] for pain control. DNAR code PPx: Eliquis for VTE Dispo: d/c home today w/ HH w/ PT Addendum - Attending - Attending Attestation Date/Time: 07/24/18 1411 I personally evaluated the patient and discussed the management with Dr. Martinez I agree with the History, Examination, Assessment and Plan documented above with any addition or exceptions noted below.Discussed with patient and Daughter available placement options.
[2018-07-24] MEDS ORDERED: Magnesium 2 GM/50 ML 1 GM in Premix Bag 1 BAG IVPB SCH (07:45)
[2018-07-24] MEDS ORDERED: Magnesium Sulfate 1 GM, Admixture Fee 1 EACH in Sodium Chloride 0.9% 100 ML IVPB SCH (08:00)
[2018-07-24] MEDS: Apixaban 5 MG TAB PO SCH ×2 (08:43→20:49)
[2018-07-24] MEDS: Spironolactone 25 MG TAB PO SCH (08:43)
[2018-07-24] MEDS: Polyethylene Glycol 3350 17 GM Packet PO SCH (08:43)
[2018-07-24] MEDS: Amlodipine 5 MG TAB PO SCH (08:44)
[2018-07-24] MEDS: Atorvastatin Calcium 10 MG TAB PO SCH (08:44)
--- NOTE | 2018-07-24 11:14 | EKG ---
Test Reason : Blood Pressure : / mmHG Vent. Rate : 090 BPM Atrial Rate : 090 BPM P-R Int : 138 ms QRS Dur : 072 ms QT Int : 336 ms P-R-T Axes : 041 -31 024 degrees QTc Int : 411 ms Normal sinus rhythm Left axis deviation Cannot rule out Anterior infarct , age undetermined Abnormal ECG Confirmed by JENNIFER SESAY ([id number]), graphics editor SHARYN MOREJON ([id number]) on 07/24/2018 11:14:12 AM Referred By: Confirmed By:JENNIFER SESAY
--- NOTE | 2018-07-25 06:01 | PDOC.FM ---
- Subjective Subjective: NAEO. Patient states she feels well this AM. No complaints. Worked with PT yesterday and states that went well. Is looking for jenkins to going to rehab to work on getting her strength back. States rehab is just waiting for an open bed for her. - Objective MAR Reviewed: Yes Vital Signs & Weight: Vital Signs (12 hours) Temp Pulse Resp BP BP Pulse Ox 07/25/18 02:17 98.1 F 103 H 20 118/75 93 L 07/24/18 18:35 98.1 F 101 H 20 125/76 95 Weight Weight 61.371 kg I&O: 07/23/18 07/24/18 07/25/18 06:59 06:59 06:59 Intake Total 3524 1370 980 Balance 3524 1370 980 Result Diagrams: 07/19/18 21:35 07/25/18 06:09 Phys Exam - Physical Examination Constitutional: NAD HEENT: moist MMs, sclera anicteric Neck: supple, full ROM Respiratory: no wheezing, no rales, no rhonchi, clear to auscultation bilateral Cardiovascular: RRR, no significant murmur Gastrointestinal: positive bowel sounds Neurological: non-focal, moves all 4 limbs Psychiatric: normal affect, A&O x 3 Skin: no rash, normal turgor Dx/Plan (1) Hypercalcemia Code(s): E83.52 - HYPERCALCEMIA Status: Acute (2) Cancer, liver, primary Code(s): C22.8 - MALIGNANT NEOPLASM OF LIVER, PRIMARY, UNSPECIFIED TO TYPE Status: Acute (3) Constipation Code(s): K59.00 - CONSTIPATION, UNSPECIFIED Status: Acute (4) Fall Code(s): W19.XXXA - UNSPECIFIED FALL, INITIAL ENCOUNTER Status: Acute (5) HLD (hyperlipidemia) Code(s): E78.5 - HYPERLIPIDEMIA, UNSPECIFIED Status: Acute (6) HTN (hypertension) Code(s): I10 - ESSENTIAL (PRIMARY) HYPERTENSION Status: Acute (7) History of DVT (deep vein thrombosis) Code(s): Z86.718 - PERSONAL HISTORY OF OTHER VENOUS THROMBOSIS AND EMBOLISM Status: Acute - Plan Plan: Moderate Hypercalcemia 2/2 hypovolemia vs. malignancy - Resolved - CT head/neck negative for acute process but did show diffuse thyromegaly. On routine work up, pt found to have a calcium of 14, corrected to 13.6. Pt has had a chronically elevated calcium but has never been this high at this facility. EKG WNLs with normal qtc - Trend with AM BMPs. Ca 13.6 corrected on arrival -> 11.6 -> 10 - PTH low, ruling out primary hyperparathyroidism; Vit D low - Oncology consulted from ER, appreciated recs - palliative care also on board Hypophosphatemia and hypomagnesemia - Aware, will continue to monitor & replace PRN Fall likely 2/2 hypovolemia - CT c spine and head show no acute/malicious processes, pt complains of increased lumbar pain but shows no red flag symptoms - Lumbar XR also negative for any acute fractures - fall precautions ordered; ambulate with assist - PT recommends rehab vs SNU. Pt denied by SNU 2/2 being on chemo & now wants to try for rehab instead of going home with daughter. Rehab screen placed yesterday. Stage IV liver CA - Oncology on board, appreciate recs. Pt has appointment for next treatment on Jul 28. - Palliative care on board as well - patient no longer complaining of pain - norco d/c'd - CXR 07/22: lung nodules present; family aware of nodules from prior CXR - Rehab screen placed yesterday as patient wants to try rehab to help regain strength. Waiting for bed to open for d/c to rehab per patient. Hx of DVT - home eliquis Hx of CVA - aware, pt lists ASA allergy HLD - home atorvastatin HTN - home spironolactone and amlodipine DM2 - pt lists in pmh but not on any med. BG low on presentation - ACHS accuchecks, mild SSI Constipation - Resolved. - Will continue miralax and senokot while patient is on [place] for pain control. DNAR code PPx: Eliquis for VTE Dispo: Either to rehab or home w/ HH pending rehab screen. Addendum - Attending - Attending Attestation Date/Time: 07/25/18 4494 I personally evaluated the patient and discussed the management with Dr. Dick I agree with the History, Examination, Assessment and Plan documented above with any addition or exceptions noted below.Patient doing well d/c pending placement .
[2018-07-25 06:40] LABS: Anion Gap 14 mmol/L (10-20); BUN (Urea Nitrogen) 6 mg/dL (9.8-20.1); Calc. Creatinine Clearance 71 mL/min (70-130); Calcium 10.7 mg/dL (7.8-10.44); Carbon Dioxide 17 mmol/L (23-31); Chloride 105 mmol/L (98-107); Estimated GFR-MDRD Greater than 90; Glucose 99 mg/dL (80-115); Magnesium 1.8 mg/dL (1.6-2.6); Potassium 4.2 mmol/L (3.5-5.1); Sodium 132 mmol/L (136-145)
[2018-07-25] MEDS ORDERED: Magnesium 2 GM/50 ML 1 GM in Premix Bag 1 BAG IVPB SCH (09:00)
[2018-07-25] MEDS: Apixaban 5 MG TAB PO SCH ×2 (09:01→20:52)
[2018-07-25] MEDS: Atorvastatin Calcium 10 MG TAB PO SCH (09:01)
[2018-07-25] MEDS: Polyethylene Glycol 3350 17 GM Packet PO SCH (09:02)
[2018-07-25] MEDS: Spironolactone 25 MG TAB PO SCH (09:02)
[2018-07-25] MEDS ORDERED: Magnesium Sulfate 1 GM, Admixture Fee 1 EACH in Sodium Chloride 0.9% 100 ML IVPB SCH (09:15)
[2018-07-25] MEDS: Amlodipine 5 MG TAB PO SCH (10:41)
--- NOTE | 2018-07-26 05:45 | PDOC.FM ---
- Subjective Subjective: No events overnight. Patient is resting comfortably. No complaints or issues. Denies chest pain, SOB, abdominal pain, NVD. Tolerating PO well. - Objective MAR Reviewed: Yes Vital Signs & Weight: Vital Signs (12 hours) Temp Pulse Resp BP Pulse Ox 07/26/18 04:34 98.6 F 95 20 106/74 96 07/26/18 00:30 99.1 F 98 20 117/72 97 07/25/18 21:03 99.0 F 100 20 115/76 96 Weight Weight 61.371 kg I&O: 07/24/18 07/25/18 07/26/18 06:59 06:59 06:59 Intake Total 1370 980 Balance 1370 980 Result Diagrams: 07/19/18 21:35 07/26/18 05:56 Phys Exam - Physical Examination Constitutional: NAD HEENT: PERRLA, moist MMs, sclera anicteric Neck: supple, full ROM Respiratory: clear to auscultation bilateral Cardiovascular: RRR Gastrointestinal: soft, non-tender, no distention, positive bowel sounds Musculoskeletal: no edema Neurological: non-focal, moves all 4 limbs Psychiatric: normal affect Dx/Plan (1) Cancer, liver, primary Code(s): C22.8 - MALIGNANT NEOPLASM OF LIVER, PRIMARY, UNSPECIFIED TO TYPE Status: Acute (2) Fall Code(s): W19.XXXA - UNSPECIFIED FALL, INITIAL ENCOUNTER Status: Acute (3) HLD (hyperlipidemia) Code(s): E78.5 - HYPERLIPIDEMIA, UNSPECIFIED Status: Acute (4) HTN (hypertension) Code(s): I10 - ESSENTIAL (PRIMARY) HYPERTENSION Status: Acute (5) History of DVT (deep vein thrombosis) Code(s): Z86.718 - PERSONAL HISTORY OF OTHER VENOUS THROMBOSIS AND EMBOLISM Status: Acute (6) Hypercalcemia Code(s): E83.52 - HYPERCALCEMIA Status: Acute (7) Constipation Code(s): K59.00 - CONSTIPATION, UNSPECIFIED Status: Acute (8) Stage 2 skin ulcer limited to breakdown of skin Code(s): L98.491 - NON-PRS CHRONIC ULCER SKIN/ SITES LIMITED TO BRKDWN SKIN Status: Acute - Plan Plan: Moderate Hypercalcemia 2/2 hypovolemia vs. malignancy - Resolved - On admission: CT head/neck negative for acute process but did show diffuse thyromegaly. On routine work up, pt found to have a calcium of 14, corrected to 13.6. Pt has had a chronically elevated calcium but has never been this high at this facility. EKG WNLs with normal qtc - Trend with AM BMPs. Ca downtrending from arrival, has increased over the last 2 days. Will continue to trend. Will likely continue to rise due to patient's stage 4 liver cancer. Discussed with patient to talk w/ Dr. Perdomo for outpatient management of Calcium levels. - PTH low, ruling out primary hyperparathyroidism; Vit D low - Oncology consulted from ER, appreciated recs - Palliative care also on board Hypophosphatemia and hypomagnesemia - Aware, will continue to monitor & replace PRN Fall likely 2/2 hypovolemia - CT c spine and head show no acute/malicious processes, pt complains of increased lumbar pain but shows no red flag symptoms; Lumbar XR also negative for any acute fractures - Fall precautions ordered; ambulate with assist - PT recommends rehab vs SNU. Pt denied by SNU 2/2 being on chemo. Patient states rehab bed secured. Will discuss w/ CM. Stage IV liver CA - Oncology on board, appreciate recs. Pt has appointment for next treatment on Jul 28. - Palliative care on board as well - Patient no longer complaining of pain - norco d/c'd - CXR 07/22: lung nodules present; family aware of nodules from prior CXR - Rehab screen placed yesterday as patient wants to try rehab to help regain strength. Waiting for bed to open for d/c to rehab per patient. Stage 2 Ulcer of Left [place] - aware, encourage repositioning throughout the day - PT/OT consulted to get patient up Hx of DVT - home eliquis Hx of CVA - aware, pt lists ASA allergy HLD - home atorvastatin HTN - home spironolactone and amlodipine DM2 - pt lists in pmh but not on any med. BG low on presentation - ACHS accuchecks, mild SSI Constipation - Resolved - Will continue miralax and senokot while patient is on [place] for pain control. DNAR code PPx: Eliquis for VTE Dispo: pending Rehab placement Addendum - Attending - Attending Attestation Date/Time: 07/26/18 1122 I personally evaluated the patient and discussed the management with Dr. Jaramillo I agree with the History, Examination, Assessment and Plan documented above with any addition or exceptions noted below. Hypercalcemia- slowly creeping up but still <12 and asymptomatic. Secondary to malignancy Liver cancer- f/u per onc recs Deconditioning- needs IP rehab- pending insurance approval. Stable for d/c one placement established.
[2018-07-26 06:27] LABS: Anion Gap 16 mmol/L (10-20); BUN (Urea Nitrogen) 8 mg/dL (9.8-20.1); Calc. Creatinine Clearance 72 mL/min (70-130); Calcium 11.3 mg/dL (7.8-10.44); Carbon Dioxide 17 mmol/L (23-31); Chloride 104 mmol/L (98-107); Estimated GFR-MDRD Greater than 90; Glucose 95 mg/dL (80-115); Magnesium 1.9 mg/dL (1.6-2.6); Phosphorus 2.2 mg/dL (2.3-4.7); Potassium 4.5 mmol/L (3.5-5.1); Sodium 132 mmol/L (136-145)
[2018-07-26] MEDS: Polyethylene Glycol 3350 17 GM Packet PO SCH (08:48)
[2018-07-26] MEDS: Atorvastatin Calcium 10 MG TAB PO SCH (08:48)
[2018-07-26] MEDS: Apixaban 5 MG TAB PO SCH ×2 (08:48→20:26)
[2018-07-26] MEDS: Spironolactone 25 MG TAB PO SCH (08:49)
[2018-07-26] MEDS: Amlodipine 5 MG TAB PO SCH (08:49)
[2018-07-26] MEDS ORDERED: Mag-Al 1200 mg/1200 mg/30 ML UDCUP PO PRN (17:17)
--- NOTE | 2018-07-27 05:52 | PDOC.FM ---
- Subjective Subjective: NAEO. Patient has no complaints or concerns. Patient denies chest pain, abdominal pain, palpitations, NVD. - Objective MAR Reviewed: Yes Vital Signs & Weight: Vital Signs (12 hours) Temp Pulse Resp BP BP Pulse Ox 07/27/18 03:50 99.1 F 97 18 116/77 99 07/26/18 23:35 98.7 F 100 18 122/78 99 07/26/18 19:20 99.6 F 95 20 118/80 96 Weight Weight 61.371 kg I&O: 07/25/18 07/26/18 07/27/18 06:59 06:59 06:59 Intake Total 980 480 850 Balance 980 480 850 Result Diagrams: 07/27/18 08:25 07/27/18 08:25 Phys Exam - Physical Examination Constitutional: NAD HEENT: PERRLA, moist MMs, sclera anicteric Neck: supple, full ROM Respiratory: clear to auscultation bilateral Cardiovascular: RRR Gastrointestinal: soft, non-tender, no distention, positive bowel sounds Musculoskeletal: no edema Neurological: non-focal, moves all 4 limbs Psychiatric: normal affect, A&O x 3 Skin: no rash Dx/Plan (1) Cancer, liver, primary Code(s): C22.8 - MALIGNANT NEOPLASM OF LIVER, PRIMARY, UNSPECIFIED TO TYPE Status: Acute (2) Fall Code(s): W19.XXXA - UNSPECIFIED FALL, INITIAL ENCOUNTER Status: Acute (3) HLD (hyperlipidemia) Code(s): E78.5 - HYPERLIPIDEMIA, UNSPECIFIED Status: Acute (4) HTN (hypertension) Code(s): I10 - ESSENTIAL (PRIMARY) HYPERTENSION Status: Acute (5) History of DVT (deep vein thrombosis) Code(s): Z86.718 - PERSONAL HISTORY OF OTHER VENOUS THROMBOSIS AND EMBOLISM Status: Acute (6) Hypercalcemia Code(s): E83.52 - HYPERCALCEMIA Status: Acute (7) Constipation Code(s): K59.00 - CONSTIPATION, UNSPECIFIED Status: Acute (8) Stage 2 skin ulcer limited to breakdown of skin Code(s): L98.491 - NON-PRS CHRONIC ULCER SKIN/ SITES LIMITED TO BRKDWN SKIN Status: Acute - Plan Plan: Moderate Hypercalcemia 2/2 hypovolemia vs. malignancy Resolved - On admission: CT head/neck negative for acute process but did show diffuse thyromegaly. On routine work up, pt found to have a calcium of 14, corrected to 13.6. - Trend with AM BMPs. Ca downtrending from arrival, has increased over the last 2 days. Will continue to trend. Will likely continue to rise due to patient's stage 4 liver cancer. Discussed w/ Dr. Perdomo's PA to administer next dose of ZA as it has been 7 days since the last dose. Patient will follow up with onc outpatient for continued ZA treatment. - PTH low, ruling out primary hyperparathyroidism; Vit D low - Oncology consulted from ER, appreciated recs. - Palliative care also on board Hypophosphatemia and hypomagnesemia - Aware, will continue to monitor & replace PRN Fall likely 2/2 hypovolemia - CT c spine and head show no acute/malicious processes, pt complains of increased lumbar pain but shows no red flag symptoms; Lumbar XR also negative for any acute fractures - Fall precautions ordered; ambulate with assist - PT recommends rehab. Rehab placement pending - awaiting insurance approval. Stage IV liver CA - Oncology on board, appreciate recs. Pt has appointment for next treatment on Jul 28. - Palliative care on board as well - CXR 07/22: lung nodules present; family aware of nodules from prior CXR - Rehab pending Stage 2 Ulcer of Left [place] - aware, encourage repositioning throughout the day - PT/OT consulted to get patient up Hx of DVT - home eliquis Hx of CVA - aware, pt lists ASA allergy HLD - home atorvastatin HTN - home spironolactone and amlodipine DM2 - pt lists in pmh but not on any med. BG low on presentation - ACHS accuchecks, mild SSI Constipation Resolved - Will continue miralax and senokot while patient is on [place] for pain control. DNAR code PPx: Eliquis for VTE Dispo: pending Rehab placement Addendum - Attending - Attending Attestation Date/Time: 07/27/18 3502 I personally evaluated the patient and discussed the management with Dr. Jaramillo. I agree with the History, Examination, Assessment and Plan documented above with any addition or exceptions noted below. Hypercalcemia secondary to metastatic liver cancer-will give another dose of ZA today. Deconditioning s/p fall- awaiting inpatient rehab insurance approval. Stable for discharge once placement arranged.
[2018-07-27] MEDS ORDERED: Zoledronic Acid 4 MG in Sodium Chloride 0.9% 100 ML IVPB SCH (06:00)
[2018-07-27 08:38] LABS: #Basophils 0.1 thou/uL (0.0-0.2); #Eosinphils 0.1 thou/uL (0.0-0.7); #Lymphocytes 2.8 thou/uL (1.20-3.40); #Monocytes 1.1 thou/uL (0.11-0.59); #Neutrophils 5.9 thou/uL (1.40-6.50); %Basophils 0.7 % (0.0-1.0); %Eosinophils 0.6 % (0.0-10.0); %Lymphocytes 28.3 % (21.0-51.0); %Monocytes 11.2 % (0.0-10.0); %Neutrophils 59.2 % (42.0-75.0); Mean Corpuscular HGB CONC 30.7 g/dL (32.0-36.0); Mean Corpuscular Hemoglobin 26.8 pg (27.0-31.0); Mean Corpuscular Volume 87.3 fL (78.0-98.0); Mean Platelet Volume 6.3 fL (7.4-10.4); Platelet Count 337 thou/uL (130-400); RBC Distribution Width 14.4 % (11.5-14.5); Red Blood Cell (RBC) Count 3.71 mill/uL (4.20-5.40)
[2018-07-27 08:54] LABS: Anion Gap 15 mmol/L (10-20); BUN (Urea Nitrogen) 7 mg/dL (9.8-20.1); Calc. Creatinine Clearance 67 mL/min (70-130); Carbon Dioxide 18 mmol/L (23-31); Chloride 101 mmol/L (98-107); Estimated GFR-MDRD 88; Glucose 101 mg/dL (80-115); Magnesium 2.1 mg/dL (1.6-2.6); Potassium 4.9 mmol/L (3.5-5.1); Sodium 129 mmol/L (136-145)
[2018-07-27] MEDS: Polyethylene Glycol 3350 17 GM Packet PO SCH (08:59)
[2018-07-27] MEDS: Apixaban 5 MG TAB PO SCH ×2 (08:59→20:53)
[2018-07-27] MEDS: Atorvastatin Calcium 10 MG TAB PO SCH (08:59)
[2018-07-27] MEDS: Spironolactone 25 MG TAB PO SCH (09:00)
[2018-07-27] MEDS: Amlodipine 5 MG TAB PO SCH (09:00)
[2018-07-27 09:02] LABS: Calcium 12.1 mg/dL (7.8-10.44)
--- NOTE | 2018-07-28 06:18 | PDOC.FM ---
- Subjective Subjective: NAEO. Patient resting comfortably in bed. No complaints or concerns. States she has been working with PT and thinks she is getting stronger. Denies chest or abdominal pain, NVD, headache, LE swelling. - Objective MAR Reviewed: Yes Vital Signs & Weight: Vital Signs (12 hours) Temp Pulse Resp BP BP Pulse Ox 07/28/18 03:27 98.6 F 66 18 98/65 97 07/28/18 00:00 99.2 F 102 H 20 112/76 97 07/27/18 20:40 99.2 F 106 H 18 120/83 94 L Weight Weight 61.371 kg I&O: 07/26/18 07/27/18 07/28/18 06:59 06:59 06:59 Intake Total 480 1330 1330 Balance 480 1330 1330 Result Diagrams: 07/27/18 08:25 07/28/18 06:37 Phys Exam - Physical Examination Constitutional: NAD HEENT: PERRLA, moist MMs, sclera anicteric Neck: supple, full ROM Respiratory: clear to auscultation bilateral Cardiovascular: RRR Gastrointestinal: soft, non-tender, no distention, positive bowel sounds Musculoskeletal: no edema Neurological: non-focal Psychiatric: normal affect, A&O x 3 Dx/Plan (1) Cancer, liver, primary Code(s): C22.8 - MALIGNANT NEOPLASM OF LIVER, PRIMARY, UNSPECIFIED TO TYPE Status: Acute (2) Fall Code(s): W19.XXXA - UNSPECIFIED FALL, INITIAL ENCOUNTER Status: Acute (3) HLD (hyperlipidemia) Code(s): E78.5 - HYPERLIPIDEMIA, UNSPECIFIED Status: Acute (4) HTN (hypertension) Code(s): I10 - ESSENTIAL (PRIMARY) HYPERTENSION Status: Acute (5) History of DVT (deep vein thrombosis) Code(s): Z86.718 - PERSONAL HISTORY OF OTHER VENOUS THROMBOSIS AND EMBOLISM Status: Acute (6) Hypercalcemia Code(s): E83.52 - HYPERCALCEMIA Status: Acute (7) Constipation Code(s): K59.00 - CONSTIPATION, UNSPECIFIED Status: Acute (8) Stage 2 skin ulcer limited to breakdown of skin Code(s): L98.491 - NON-PRS CHRONIC ULCER SKIN/ SITES LIMITED TO BRKDWN SKIN Status: Acute - Plan Plan: Moderate Hypercalcemia 2/2 hypovolemia vs. malignancy Resolved - On admission: CT head/neck negative for acute process but did show diffuse thyromegaly. On routine work up, pt found to have a calcium of 14, corrected to 13.6. - Trend with AM BMPs. Ca downtrending from arrival, has increased over the last 2 days. Will continue to trend. Will likely continue to rise due to patient's stage 4 liver cancer. Discussed w/ Dr. Perdomo's PA to administer next dose of ZA as it has been 7 days since the last dose. Patient will follow up with onc outpatient for continued ZA treatment. ZA dose given on 07/27/18. - PTH low, ruling out primary hyperparathyroidism; Vit D low - Oncology consulted from ER, appreciated recs. - Palliative care also on board Electrolyte derangements - Hypophosphatemia, hypomagnesemia, hyponatremia - Aware, will continue to monitor & replace PRN - for Hyponatremia, will give IVF after urine osmoles/electrolytes result Fall likely 2/2 hypovolemia - CT c spine and head show no acute/malicious processes, pt complains of increased lumbar pain but shows no red flag symptoms; Lumbar XR also negative for any acute fractures - Fall precautions ordered; ambulate with assist - PT recommends rehab. Rehab placement pending - awaiting insurance approval. Stage IV liver CA - Oncology on board, appreciate recs. Pt has appointment for next treatment on Jul 28. - Palliative care on board as well - CXR 07/22: lung nodules present; family aware of nodules from prior CXR - Rehab pending - Patient due to get chemo 07/28; per Dr. Perdomo will start inpatient chemo as patient is still pending rehab Stage 2 Ulcer of Left [place] - aware, encourage repositioning throughout the day - PT/OT consulted to get patient up Hx of DVT - home eliquis Hx of CVA - aware, pt lists ASA allergy HLD - home atorvastatin HTN - home spironolactone and amlodipine DM2 - pt lists in pmh but not on any med. BG low on presentation - ACHS accuchecks, mild SSI Constipation Resolved - Will continue miralax and senokot while patient is on [place] for pain control. DNAR code PPx: Eliquis for VTE Dispo: pending Rehab placement Addendum - Attending - Attending Attestation Date/Time: 07/28/18 4476 I personally evaluated the patient and discussed the management with Dr. Jaramillo I agree with the History, Examination, Assessment and Plan documented above with any addition or exceptions noted below. Stage IV liver cancer- due for chemotherapy today. N/V- zofran Hypovolemic hyponatremia- will give additional IVF. Patient is only drinking 12 oz (less than one bottle per day) per her report. She will be at consistent risk of electrolyte abonormalities with her anorexia from chemo. Frequent falls- awaiting inpatient rehab approval.
[2018-07-28 07:26] LABS: Chloride 101 mmol/L (98-107); Magnesium 2.1 mg/dL (1.6-2.6); Potassium 4.7 mmol/L (3.5-5.1); Sodium 128 mmol/L (136-145)
[2018-07-28 07:27] LABS: Glucose 97 mg/dL (80-115)
[2018-07-28 07:29] LABS: Anion Gap 18 mmol/L (10-20); Carbon Dioxide 14 mmol/L (23-31)
[2018-07-28 07:31] LABS: BUN (Urea Nitrogen) 9 mg/dL (9.8-20.1); Calc. Creatinine Clearance 68 mL/min (70-130); Estimated GFR-MDRD 89
[2018-07-28 07:34] LABS: Calcium 12.1 mg/dL (7.8-10.44); Phosphorus 2.7 mg/dL (2.3-4.7)
[2018-07-28] MEDS ORDERED: Ondansetron PF 4 MG/2 ML Vial IVP PRN (08:49)
[2018-07-28] MEDS: Apixaban 5 MG TAB PO SCH ×2 (09:09→19:51)
[2018-07-28] MEDS: Spironolactone 25 MG TAB PO SCH (09:09)
[2018-07-28] MEDS: Atorvastatin Calcium 10 MG TAB PO SCH (09:09)
[2018-07-28] MEDS: Polyethylene Glycol 3350 17 GM Packet PO SCH (09:10)
[2018-07-28] MEDS: Amlodipine 5 MG TAB PO SCH (09:10)
[2018-07-28] MEDS ORDERED: Pembrolizumab 200 MG in Sodium Chloride 0.9% 250 ML 250 ML IV SCH (09:45)
[2018-07-28] MEDS ORDERED: Sodium Chloride 0.9% 1,000 ML IV SCH (09:45)
[2018-07-28 11:45] LABS: Potassium, Urine 64.4 mmol/L
[2018-07-28] MEDS: Sodium Chloride 0.9% 1,000 ML IV SCH ×2 (12:51→19:51)
[2018-07-29] MEDS: Sodium Chloride 0.9% 1,000 ML IV SCH ×3 (04:15→21:34)
--- NOTE | 2018-07-29 06:22 | PDOC.FM ---
Addendum entered and electronically signed by Farheen Jaramillo MD 07/29/18 12:08 : Per nursing, patient noted to have difficulty swallowing. Speech consult placed to evalute. Will follow up results and modify diet as necessary. Original Note: - Subjective Subjective: NAEO. Patient reports abdominal pain this morning. Similar to the previous abdominal pain this hospital stay. She reports recent BM. Patient denies nausea and vomiting. Patient reports minimal PO intake. Denies SOB, chest pain. States Dr. Perdomo came yesterday to give her chemo. - Objective MAR Reviewed: Yes Vital Signs & Weight: Vital Signs (12 hours) Temp Pulse Resp BP Pulse Ox 07/29/18 04:05 97.6 F 81 22 H 149/77 H 94 L 07/28/18 23:30 99.3 F 88 24 H 125/68 94 L 07/28/18 19:50 99.0 F 94 24 H 111/77 100 Weight Weight 61.371 kg I&O: 07/27/18 07/28/18 07/29/18 06:59 06:59 06:59 Intake Total 1330 1330 2770 Balance 1330 1330 2770 Result Diagrams: 07/27/18 08:25 07/29/18 09:51 Phys Exam - Physical Examination Constitutional: NAD HEENT: moist MMs, sclera anicteric Neck: supple, full ROM Respiratory: clear to auscultation bilateral Cardiovascular: RRR Gastrointestinal: soft Musculoskeletal: no edema Neurological: non-focal, moves all 4 limbs Psychiatric: normal affect Dx/Plan (1) Cancer, liver, primary Code(s): C22.8 - MALIGNANT NEOPLASM OF LIVER, PRIMARY, UNSPECIFIED TO TYPE Status: Acute (2) Fall Code(s): W19.XXXA - UNSPECIFIED FALL, INITIAL ENCOUNTER Status: Acute (3) HLD (hyperlipidemia) Code(s): E78.5 - HYPERLIPIDEMIA, UNSPECIFIED Status: Acute (4) HTN (hypertension) Code(s): I10 - ESSENTIAL (PRIMARY) HYPERTENSION Status: Acute (5) History of DVT (deep vein thrombosis) Code(s): Z86.718 - PERSONAL HISTORY OF OTHER VENOUS THROMBOSIS AND EMBOLISM Status: Acute (6) Hypercalcemia Code(s): E83.52 - HYPERCALCEMIA Status: Acute (7) Constipation Code(s): K59.00 - CONSTIPATION, UNSPECIFIED Status: Acute (8) Stage 2 skin ulcer limited to breakdown of skin Code(s): L98.491 - NON-PRS CHRONIC ULCER SKIN/ SITES LIMITED TO BRKDWN SKIN Status: Acute - Plan Plan: Moderate Hypercalcemia 2/2 hypovolemia vs. malignancy - On admission: CT head/neck negative for acute process but did show diffuse thyromegaly. On routine work up, pt found to have a calcium of 14, corrected to 13.6. - Trend with AM BMPs. Ca downtrending from arrival, has increased over the last few days. Will continue to trend. Will likely continue to rise due to patient's stage 4 liver cancer. Discussed w/ Dr. Perdomo's PA to administer next dose of ZA as it has been 7 days since the last dose. Patient will follow up with onc outpatient for continued ZA treatment. ZA dose given on 07/27/18. - PTH low, ruling out primary hyperparathyroidism; Vit D low - Oncology consulted from ER, appreciated recs. - Palliative care also on board Electrolyte derangements - Hypophosphatemia, hypomagnesemia, hyponatremia - Aware, will continue to monitor & replace PRN - Urine osmoles/electrolytes wnl Malnutrition - Will consult nutrition for supplementation - Will start mirtazepine to help stimulate appetite; discussed with patient risk and benefits. patient agreed to start medication. Will call daughter and discuss with her as well. Fall likely 2/2 hypovolemia - CT c spine and head show no acute/malicious processes, pt complains of increased lumbar pain but shows no red flag symptoms; Lumbar XR also negative for any acute fractures - Fall precautions ordered; ambulate with assist - PT recommends rehab. Rehab placement pending - awaiting insurance approval. Stage IV liver CA - Oncology on board, appreciate recs. Pt has appointment for next treatment on Jul 28. - Palliative care on board as well - CXR 07/22: lung nodules present; family aware of nodules from prior CXR - Rehab pending - Patient due to get chemo 07/28; per Dr. Perdomo will start inpatient chemo as patient is still pending rehab Stage 2 Ulcer of Left [place] - aware, encourage repositioning throughout the day - PT/OT consulted to get patient up Hx of DVT - home eliquis Hx of CVA - aware, pt lists ASA allergy HLD - home atorvastatin HTN - home spironolactone and amlodipine DM2 - pt lists in pmh but not on any med. BG low on presentation - ACHS accuchecks, mild SSI Constipation Resolved - Will continue miralax and senokot DNAR code PPx: Adinaquis for VTE Dispo: pending Rehab placement Addendum - Attending - Attending Attestation Date/Time: 07/29/18 2360 I personally evaluated the patient and discussed the management with Dr. Jaramillo. I agree with the History, Examination, Assessment and Plan documented above with any addition or exceptions noted below. Patient near her baseline except very weak and struggling with deconditioning. Lung cancer with liver mets- discussed with Devika Fitzpatrick today and patient has been on keytruda for over a year and is new to their practice. They will hold her next treatment until she has completed SNF or rehab Hypercalcemia- secondary to malignancy- will need close checks as outpatient and ZA as needed outpatient. s/p fall- deconditioning- needs PT with either SNF or IP rehab Hyponatremia- improving with IVF- patient will need increased oral intake Malnutrition- nutrition consult to ensure caloric needs met. ST eval to rule out aspiration Depression- will start mirtazipine.
[2018-07-29] MEDS ORDERED: traMADol HCl 50 MG TAB PO PRN (08:30)
[2018-07-29] MEDS: Apixaban 5 MG TAB PO SCH ×2 (09:08→21:34)
[2018-07-29] MEDS: Atorvastatin Calcium 10 MG TAB PO SCH (09:08)
[2018-07-29] MEDS: Amlodipine 5 MG TAB PO SCH (09:09)
[2018-07-29] MEDS: Polyethylene Glycol 3350 17 GM Packet PO SCH (09:09)
[2018-07-29] MEDS: Spironolactone 25 MG TAB PO SCH (10:22)
[2018-07-29 10:29] LABS: Anion Gap 14 mmol/L (10-20); BUN (Urea Nitrogen) 9 mg/dL (9.8-20.1); Calc. Creatinine Clearance 64 mL/min (70-130); Calcium 11.4 mg/dL (7.8-10.44); Carbon Dioxide 17 mmol/L (23-31); Chloride 104 mmol/L (98-107); Estimated GFR-MDRD 83; Glucose 98 mg/dL (80-115); Magnesium 2.1 mg/dL (1.6-2.6); Phosphorus 2.4 mg/dL (2.3-4.7); Potassium 4.7 mmol/L (3.5-5.1); Sodium 130 mmol/L (136-145)
[2018-07-29 13:15] VITALS: BMI 23.9
[2018-07-29] MEDS ORDERED: Mirtazapine 15 MG TAB PO SCH (21:00)
--- NOTE | 2018-07-30 06:47 | PDOC.FM ---
- Subjective Subjective: NAEO. Patient resting in bed. Patient denies chest pain, abdominal pain, SOB, NVD. Daughter at the bedside, states she thinks patient will benefit from SNF. States she is okay with postponing chemo/immunotherapy while at SNF. - Objective MAR Reviewed: Yes Vital Signs & Weight: Vital Signs (12 hours) Temp Pulse Resp BP Pulse Ox 07/30/18 04:00 97.7 F 86 20 112/76 97 07/30/18 00:00 97.7 F 85 20 124/84 95 07/29/18 21:30 94 L 07/29/18 20:00 98.9 F 92 20 92/52 L 94 L Weight Admit Weight 59.602 kg Weight 61.371 kg I&O: 07/28/18 07/29/18 07/30/18 06:59 06:59 06:59 Intake Total 1330 2770 Balance 1330 2770 Result Diagrams: 07/27/18 08:25 07/30/18 08:15 Phys Exam - Physical Examination Constitutional: NAD HEENT: PERRLA, moist MMs, sclera anicteric Neck: supple, full ROM Respiratory: clear to auscultation bilateral Cardiovascular: RRR Gastrointestinal: soft, non-tender, no distention, positive bowel sounds Musculoskeletal: no edema Neurological: non-focal Psychiatric: normal affect, A&O x 3 Dx/Plan (1) Cancer, liver, primary Code(s): C22.8 - MALIGNANT NEOPLASM OF LIVER, PRIMARY, UNSPECIFIED TO TYPE Status: Acute (2) Fall Code(s): W19.XXXA - UNSPECIFIED FALL, INITIAL ENCOUNTER Status: Acute (3) HLD (hyperlipidemia) Code(s): E78.5 - HYPERLIPIDEMIA, UNSPECIFIED Status: Acute (4) HTN (hypertension) Code(s): I10 - ESSENTIAL (PRIMARY) HYPERTENSION Status: Acute (5) History of DVT (deep vein thrombosis) Code(s): Z86.718 - PERSONAL HISTORY OF OTHER VENOUS THROMBOSIS AND EMBOLISM Status: Acute (6) Hypercalcemia Code(s): E83.52 - HYPERCALCEMIA Status: Acute (7) Constipation Code(s): K59.00 - CONSTIPATION, UNSPECIFIED Status: Acute (8) Stage 2 skin ulcer limited to breakdown of skin Code(s): L98.491 - NON-PRS CHRONIC ULCER SKIN/ SITES LIMITED TO BRKDWN SKIN Status: Acute - Plan Plan: Moderate Hypercalcemia 2/2 hypovolemia vs. malignancy - On admission: CT head/neck negative for acute process but did show diffuse thyromegaly. On routine work up, pt found to have a calcium of 14, corrected to 13.6. - Trend with AM BMPs. Ca downtrending from arrival, has increased over the last few days. Will continue to trend. Will likely continue to rise due to patient's stage 4 liver cancer. Discussed w/ Dr. Perdomo's PA to administer next dose of ZA as it has been 7 days since the last dose. Patient will follow up with onc outpatient for continued ZA treatment. ZA dose given on 07/27/18. - PTH low, ruling out primary hyperparathyroidism; Vit D low - Oncology consulted from ER, appreciated recs. - Palliative care also on board Electrolyte derangements - Hypophosphatemia, hypomagnesemia, hyponatremia - Aware, will continue to monitor & replace PRN - Urine osmoles/electrolytes wnl Malnutrition - Will consult nutrition for supplementation - recommend mechanical softs; will continue to monitor - Will start mirtazepine to help stimulate appetite; discussed with patient risk and benefits. Patient agreed to start medication. Fall likely 2/2 hypovolemia - CT c spine and head show no acute/malicious processes, pt complains of increased lumbar pain but shows no red flag symptoms; Lumbar XR also negative for any acute fractures - Fall precautions ordered; ambulate with assist - PT recommends rehab. Patient denied rehab. Patient would like to try SNF now, and post pone chemo until after SNF stay. Onc agrees with that plan and will restart chemo after SNF stay. Stage IV liver CA - Oncology on board, appreciate recs. Pt has appointment for next treatment on Jul 28. - Palliative care on board as well - CXR 07/22: lung nodules present; family aware of nodules from prior CXR - Rehab pending - Patient due to get chemo 07/28; per Dr. Perdomo: patient given immunotherapy on Stage 2 Ulcer of Left [place] - aware, encourage repositioning throughout the day - PT/OT consulted to get patient up Hx of DVT - home eliquis Hx of CVA - aware, pt lists ASA allergy HLD - home atorvastatin HTN - home spironolactone and amlodipine DM2 - pt lists in pmh but not on any med. BG low on presentation - ACHS accuchecks, mild SSI Constipation Resolved - Will continue miralax and senokot DNAR code PPx: Eliquis for VTE Dispo: pending SNF placement Addendum - Attending - Attending Attestation Date/Time: 07/30/18 5555 I personally evaluated the patient and discussed the management with Dr. Jaramillo I agree with the History, Examination, Assessment and Plan documented above with any addition or exceptions noted below. Stable for discharge to SNF
[2018-07-30 08:48] LABS: Albumin 3.3 g/dL (3.4-4.8)
[2018-07-30 08:50] LABS: Calcium 10.8 mg/dL (7.8-10.44); Chloride 108 mmol/L (98-107); Potassium 4.5 mmol/L (3.5-5.1); Sodium 134 mmol/L (136-145)
[2018-07-30 08:51] LABS: Globulin 4.1 g/dL (2.4-3.5); Glucose 89 mg/dL (80-115); Protein, Total 7.4 g/dL (6.0-8.3)
[2018-07-30 08:52] LABS: Anion Gap 14 mmol/L (10-20); Carbon Dioxide 17 mmol/L (23-31)
[2018-07-30 08:53] LABS: Bilirubin, Total 0.6 mg/dL (0.2-1.2)
[2018-07-30 08:54] LABS: Alkaline Phosphatase 115 U/L (40-150); Calc. Creatinine Clearance 65 mL/min (70-130); Estimated GFR-MDRD 85
[2018-07-30 08:55] LABS: BUN (Urea Nitrogen) 7 mg/dL (9.8-20.1)
[2018-07-30 08:56] LABS: ALT (SGPT) 16 U/L (8-55); AST (SGOT) 65 U/L (5-34)
[2018-07-30] MEDS: Polyethylene Glycol 3350 17 GM Packet PO SCH (09:57)
[2018-07-30] MEDS: Spironolactone 25 MG TAB PO SCH (09:57)
[2018-07-30] MEDS: Atorvastatin Calcium 10 MG TAB PO SCH (09:57)
[2018-07-30] MEDS: Apixaban 5 MG TAB PO SCH (09:57)
[2018-07-30] MEDS: Amlodipine 5 MG TAB PO SCH (09:57)
[2018-07-30] MEDS: Sodium Chloride 0.9% 1,000 ML IV SCH ×2 (09:58→15:31)
[2018-07-30 15:54] VITALS: BP 119/83; TEMP 98.7
--- NOTE | 2018-08-02 09:49 | DIS ---
DATE OF ADMISSION: 07/19/2018 DATE OF DISCHARGE: 07/30/2018 RESIDENT: Farheen Jaramillo MD ADMITTING ATTENDING: Dr. Jones. DISCHARGE ATTENDING: Dr. Gomez. CONSULTS: Case Management, Oncology, PT/OT, Palliative Care, Rehab, Speech, Dietitian. PROCEDURES: Immunotherapy. PRIMARY DIAGNOSES: 1. Moderate hypercalcemia secondary to hypervolemia versus lung lesion. 2. Electrolyte derangement, malnutrition. SECONDARY DIAGNOSES: 1. Stage IV liver cancer. 2. Stage II ulcer of left buttocks. 3. History of deep venous thrombosis. 4. History of CVA, hyperlipidemia, hypertension, diabetes type 2, functional constipation. DISCHARGE MEDICATIONS: 1. Remeron 15 mg oral at bedtime. 2. Atorvastatin 10 mg oral daily. 3. Eliquis 5 mg oral twice daily. 4. Norvasc 10 mg oral daily. 5. Spironolactone 50 mg oral daily. DISCONTINUED MEDICATIONS: None. HISTORY OF PRESENT ILLNESS/HOSPITAL COURSE: This is a 68-year-old female with past medical history of stage IV liver cancer with mets to the lungs and pelvic lymph nodes, who presented to the ED with a complaint of a fall. The patient was diagnosed in December of 2016 and her last chemo treatment was the beginning of July this year.The patient reported losing her balance earlier when moving her head and moving back. The patient reports that she simply lost her balance, not experienced any dizziness or vertigo or loss of consciousness. The daughter is at the bedside. She has had significantly decreased her p.o. intake since her last chemo earlier this month. The patient's oncologist is Dr. Perdomo who was consulted on the day of admission. The patient recently moved here from [place], [place]. She had been treated for her cancer there. On admission, the patient was found to have a calcium 14 and correct to 13.6 w/ albumin, which falls in the moderate hypercalcemic range. In the emergency department, the patient was given 1 L of normal saline and Tylenol. The patient's vital signs are within normal limits on admission. The patient's labs are only significant for hypercalcemia. The patient was admitted to the telemetry floor for observation in correction of her calcium. The patient was given IV fluids and one dose of zolendronic acid to decrease her calcium. The patient's calcium decreased over the next few days and then again began to rise. The patient was given another dose of zolendronic acid to help lower her calcium. The patient's calcium will likely continue to rise due to the patient's malignacy. The patient was started on PT/OT to help regain strength. PTH was within normal limits to rule out primary hyperparathyroidism. The patient was found to have low vitamin D. CT C-spine and head, as well as lumbar x-ray were negative for any fractures or acute processes. The patient was restarted on her home medications. The patient was also found to have other electrolyte derangements throughout her stay including hypophosphatemia, hypomagnesemia, and hyponatremia. These were monitored and replaced as needed.The patient was malnourished due to decreased p.o. intake. The patient endorsed also depressed feeling. The patient was started on mirtazapine to help with appetite as well as to help with depression. The patient was seen by Dr. Perdomo throughout this hospitalization and immunotherapy was given to the patient on 07/27/2018. The patient was originally planned to go to halfway facility, but was denied due to current chemo treatment. The patient was then going to transfer to inpatient rehab but was denied. The patient was later approved after a doc to doc, but the patient then decided that she would prefer a halfway facility to inpatient rehab due to the intense nature of rehab at inpatient rehab facility. After discussions with Dr. Perdomo, it was decided that chemo and immunotherapy would be postponed until the patient is out of this facility. The patient and her daughter agree with this plan. All questions were answered. The patient was evaluated by Speech Therapy who felt patient was able to swallow pureed and nectar thick liquid with no aspiration. The patient agreed to regular diet for comfort feeds with aspiration risk. DISPOSITION: Stable, but long-term prognosis is guarded. DISCHARGE INSTRUCTIONS: 1. Location: detention facility at [facility]. 2. Diet: Regular. 3. Activity, ad wade. 4. Follow up with PCP within [address] Perdomo. Job ID: [id number]
--- NOTE | 2018-08-04 12:10 | PQF ---
REBEKA SWANSON BRANDON [id number] [facility]-[id number] CLINICAL DOCUMENTATION CLARIFICATION FORM: POST DISCHARGE Addendum to original discharge summary date: ____ Late entry note date: __ Date: 08/04/2018 ATTN: ASHU SHAFER Please exercise your independent, professional judgment in responding to the clarification form. Clinical indicators are provided on the bottom of this form for your review Please check appropriate box(s): [ x] Protein Calorie Malnutrition: [ ] Mild [x ] Moderate [ ] Severe [ ] Other Malnutrition (please specify) __ [ ] Underweight without malnutrition [ ] Other diagnosis [ ] Unable to determine In addition, please specify: Present on Admission (POA): [ x ] Yes [ ] No [ ] Unable to determine CLINICAL INDICATORS - SIGNS / SYMPTOMS / LABS: 07/29-07/30 PN - Malnutrition BMI of 23.9 H&P & PN - Abnormal electrolytes DS - Malnourished due to decreased p.o. intake RISK FACTORS: 07/29-07/30 PN - Change in appetite / nausea / vomiting TREATMENT: 07/29-07/30 PN -Nutritional supplements, start mirtazepine help stimulate appetite Moderate Malnutrition (in acute illness) Energy Intake: <75% of estimated energy requirement for > 7 days Weight Loss: 1-2%/1 week; 5%/ 1 month; 7.5%/3 months Other: mild body fat loss; mild muscle mass loss; mild fluid accumulation; Severe Malnutrition (in acute illness) Energy Intake: < 50% of estimated energy requirement for > 5 days Weight Loss: >1-2%/1 week; >5%/1 month; >7.5%/3 months Other: moderate body fat loss; moderate muscle mass loss; moderate- severe fluid accumulation; measurably reduced radiophone operator strength Moderate Malnutrition (in chronic illness) Energy Intake: <75% of estimated energy requirement for >1 month Weight Loss: 5%/1 month; 7.5%/3 months; 10%/6 months; 20%/1 year Other: mild body fat loss; mild muscle mass loss; mild fluid accumulation Severe Malnutrition (in chronic illness) Energy Intake: <75% of estimated energy requirement for >1 month Weight Loss: >5%/1 month; >7.5%/3 months; >10%/6 months; >20%/1 year Other: severe body fat loss; severe muscle mass loss; severe fluid accumulation ; measurably reduced radiophone operator strength (This form is maintained as a part of the permanent medical record) 2014 [employer]. All Rights Reserved Rebekah Romero CCS, PUBLIC [employer] ATTENDANT-H [email or web address] [phone] [email or web address]
== END 2018-07-30 17:15 | DRG 641 ==
LOC: ERS 18:23 → ERHOLD 23:08 → OBSVTOIN 23:08 → 2SW 07-20 21:32 → SURG A 07-25 12:06
PROVIDERS: ADMIT Emergency Medicine; ATTEND Emergency Medicine
DX: E83.52 Hypercalcemia (principal); C22.8 Malignant neoplasm of liver, primary, unspecified as to type; C78.02 Secondary malignant neoplasm of left lung; C78.01 Secondary malignant neoplasm of right lung; C77.5 Secondary and unspecified malignant neoplasm of intrapelvic lymph nodes; E87.1 Hypo-osmolality and hyponatremia; E44.0 Moderate protein-calorie malnutrition; I10 Essential (primary) hypertension; E78.5 Hyperlipidemia, unspecified; Z86.718 Personal history of other venous thrombosis and embolism; E11.9 Type 2 diabetes mellitus without complications; T45.1X5A Adverse effect of antineoplastic and immunosuppressive drugs, initial encounter; Z66 Do not resuscitate; L89.152 Pressure ulcer of sacral region, stage 2; Z79.01 Long term (current) use of anticoagulants; E87.70 Fluid overload, unspecified; Z23 Encounter for immunization; Z86.73 Personal history of transient ischemic attack (TIA), and cerebral infarction without residual deficits; E83.42 Hypomagnesemia; F32.9 Major depressive disorder, single episode, unspecified; E83.39 Other disorders of phosphorus metabolism; W19.XXXA Unspecified fall, initial encounter; K59.00 Constipation, unspecified; M54.5 Low back pain; M25.551 Pain in right hip; Z68.23 Body mass index [BMI] 23.0-23.9, adult
CPT/HCPCS: 36415; 36416; 70450; 71045; 72100; 72125; 80048; 80053; 82040; 82306; 82436; 82550; 83735; 83935; 83970; 84100; 84133; 84300; 84484; 85025; 90471; 90662; 90670; 93005; 96361; 96365; 96366; G0008; G0009; J1940; J2405; J3475; J3489; J7050; J9271